=== PATIENT | male | born 1985 | race Caucasian/White ===

== ENCOUNTER 2023-04-17 12:16 | Emergency (ER) | payer MEDICAID ==
[~2023-04-17] VITALS: Ht 185.4 cm; Wt 81.6 kg
--- NOTE | 2023-04-17 12:31 | NUR ---
seen and examined by
--- NOTE | 2023-04-17 12:33 | NUR ---
PT WAS EVALUATED BY DR DASILVA. PT WAS D/C'd TO HOME. D/C INSTRUCTIONS GIVEN TO THE PT BY DR DASILVA.
[2023-04-17] MEDS ORDERED: CYCL10TA9 PO (12:38)
[2023-04-17] MEDS ORDERED: METH4TAB3 PO (12:38)
[2023-04-17 12:45] VITALS: BP 129/68; TEMP 98; O2SAT 98
== END 2023-04-17 12:45 | disposition home or self-care (01) ==
LOC: ER 12:16
DX: M54.41 Lumbago with sciatica, right side (principal)
CPT/HCPCS: A4663